=== PATIENT | male | born 1930 | race Caucasian/White ===

== ENCOUNTER 2017-12-16 10:37 | Inpatient (IN) | payer OTHER, MEDICARE ==
--- NOTE | 2017-12-16 11:21 | PDOC ---
History of Present Illness - General Chief Complaint: Lightheaded Stated Complaint: CHEST PAIN Time Seen by Provider: 12/16/17 10:46 - History of Present Illness Initial Comments: 12/16/17 11:18 "The patient is a 87 year old male, accompanied by family, with a past medical history of recent cardiac arrhythmia diagnosis (6 weeks ago), hypercholesterolemia (under control), BPH, and GERD who presents to the Emergency Department today with unsteady gait since early this morning. The patient states that when he got up to go to the bathroom during the night he felt unsteady. Upon going back to bed and waking up this morning he still felt unsteady and activated an ambulance. He states that he feels like he is unable to walk without holding on to something. Pt denies lightheadedness, denies room- spinning sensation. Denies CP/SOB/palpitations. No F/C. No abdominal pain/N/V/D. The patient is new to the area, his new primary medical doctor is Dr. Jerry Simms and he has an appointment to meet line haul owner operator, Dr. Khalil, this week. Family reports that patient fell out of bed 6 weeks ago, went to the hospital, and was admitted for 2 nights after having a heart rate of 30 bpm. Pt also had a holter monitor that showed runs of ectopic beats. At that time the patient was put on Metoprolol. He denies any recent changes in diet. He denies any dizziness, chest pain, shortness of breath, or similar symptoms previously. He denies any favoring, numbness or weakness to one side or another. Allergies: Tetracycline" NIH Stroke Scale - Last Known Well Date/Time & Onset Date Last Known Well: 12/15/17 Time Last Known Well: 22:00 - Initial Evaluation Level of consciousness: Alert Ask patient the month and their age: Answers both correctly Ask patient to open & close eyes; make fist and let go: Obeys both correctly Best gaze (horizontal eye movement): Normal Visual field testing: No visual field loss Facial paresis (Show teeth/raise eyebrows/close eyes tight): Normal symmetrical movement Motor Function: Left Arm: Normal Motor Function: Right Arm: Normal (extends arm 90 (or 45) degrees for 10 seconds without drift Motor Function: Left Leg: Normal (extends leg 30 degrees for 5 seconds without drift) Motor Function: Right Leg: Normal (extends leg 30 degrees for 5 seconds without drift) Limb Ataxia: Present in one limb Sensory(Use pinprick test arms,legs,trunk,face/side to side): Normal Best language (Describe picture, name items, read sentences): No Aphasia Dysarthria (read several words): Normal articulation Extinction and Inattention: No abnormality - Total Score NIH Stroke Scale Score: 1 Past History - Past Medical History Allergies/Adverse Reactions: Allergies Allergy/AdvReac Type Severity Reaction Status Date / Time Tetracyclines Allergy Unknown Verified 12/16/17 10:55 Home Medications: Ambulatory Orders Ascorbic Acid [Vitamin C] 1,000 mg PO DAILY 12/16/17 Aspirin [Aspirin EC] 81 mg PO DAILY 12/16/17 Calcium Lactate 100 mg PO DAILY 12/16/17 Cholecalciferol (Vitamin D3) [Vitamin D3] 1,000 unit PO DAILY 12/16/17 Cyanocobalamin [Vitamin B12 -] 1,000 mcg PO DAILY 12/16/17 Ferrous Sulfate 325 mg PO DAILY 12/16/17 Finasteride 5 mg PO DAILY 12/16/17 Fluticasone Prop 0.05% Nasal [Flonase -] 1 - 2 spray NS DAILY 12/16/17 Metoprolol Succinate 50 mg PO DAILY 12/16/17 Nitroglycerin Sublingual [Nitrostat -] 0.4 mg SL PRN PRN 12/16/17 [place]-3 Fatty Acids/Fish Oil [Cvs Fish Oil 1,200 mg Softgel] 3 each PO DAILY 09/22 Omeprazole 20 mg PO DAILY 12/16/17 Ranitidine HCl 150 mg PO DAILY 12/16/17 Simvastatin 40 mg PO HS 12/16/17 Tamsulosin HCl [Flomax] 0.4 mg PO DAILY 12/16/17 Ubidecarenone [Coenzyme Q-10] 200 mg PO DAILY 12/16/17 Cardiac Disorders: Yes COPD: No HTN: Yes Hypercholesterolemia: Yes Other medical history: BPH - Suicide/Smoking/Psychosocial Hx Smoking History: Never smoked Hx Alcohol Use: No Drug/Substance Use Hx: No Substance Use Type: None Review of Systems - Review of Systems Comments:: 12/16/17 11:22 "GENERAL/CONSTITUTIONAL: No fever or chills. HEAD, EYES, EARS, NOSE AND THROAT: No change in vision. No ear pain or discharge. No sore throat. CARDIOVASCULAR: No chest pain or shortness of breath. RESPIRATORY: No cough, wheezing, or hemoptysis. GASTROINTESTINAL: No nausea, vomiting, diarrhea or constipation. GENITOURINARY: No dysuria, frequency, or change in urination. MUSCULOSKELETAL: No joint or muscle swelling or pain. No neck or back pain. SKIN: No rash NEUROLOGIC: (+) Unsteady Gait. No headache, vertigo, loss of consciousness. ENDOCRINE: No increased thirst. No abnormal weight change. HEMATOLOGIC/LYMPHATIC: No anemia, easy bleeding, or history of blood clots. ALLERGIC/IMMUNOLOGIC: No hives or skin allergy." *Physical Exam - Vital Signs Last Vital Signs Temp Pulse Resp BP Pulse Ox 97.6 F 70 18 128/56 96 12/16/17 10:55 12/16/17 10:55 12/16/17 10:55 12/16/17 10:55 12/16/17 10:55 - Physical Exam Comments: 12/16/17 11:23 "GENERAL: Awake, alert, and fully oriented, in no acute distress HEAD: No signs of trauma EYES: PERRLA, EOMI, sclera anicteric, conjunctiva clear ENT: Auricles normal inspection, hearing grossly normal, nares patent, oropharynx clear without exudates. Moist mucosa NECK: Nontender, no stepoffs, Normal ROM, supple, no lymphadenopathy, JVD, or masses LUNGS: Breath sounds equal, clear to auscultation bilaterally. No wheezes, and no crackles HEART: Regular rate and rhythm, normal S1 and S2, no murmurs, rubs or gallops ABDOMEN: Soft, nontender, normoactive bowel sounds. No guarding, no rebound. No masses EXTREMITIES: Normal range of motion, no edema. No clubbing or cyanosis. No cords, erythema, or tenderness NEUROLOGICAL: (+) Mildly ataxic gait with (+) Romberg. Cranial nerves II through XII intact. 5/5 strength and sensation in all extremities, Normal speech , normal [id number], no nystagmus SKIN: Warm, Dry, normal turgor, no rashes or lesions noted. " Heart Score/ECG Review - ECG Impressions Comment:: 12/16/17 11:23 NSR, no SALVATORE/STDs, no TWIs, RBBB, rate 55 ED Treatment Course - LABORATORY CBC & Chemistry Diagram: 12/16/17 11:25 12/16/17 11:25 - RADIOLOGY Radiology Studies Ordered: Category Date Time Status HEAD CT WITHOUT CONTRAST [CT] Stat CT Scan 12/16/17 11:02 Ordered CHEST PA & LAT [RAD] Stat Radiology 12/16/17 11:02 Ordered Medical Decision Making - Medical Decision Making 12/16/17 11:24 87 M with unsteady gait x 1 day. Found to have + romberg on exam. Normal cerebellar tests. Symptoms concerning for sensory vs cerebellar ataxia. Pt outside window for TPA, as LKN was last night. Also consider cardiac etiology as pt has recently been diagnosed with arrhythmia (unclear which one), though pt denies pre-syncopal sensation and has normal vitals. EKG is NSR currently. - Labs - CT head - Neuro consult 12/16/17 12:53 CTH negative. Spoke with Dr. Booker, who recommends MRI. Pt admitted to tele under Dr. Simms. *DC/Admit/Observation/Transfer Diagnosis at time of Disposition: Ataxia - Discharge Dispostion Admit: Yes - Referrals Referrals: Praveen Simms MD [Primary Care Provider] - - Patient Instructions - Post Discharge Activity - Attestations Physician Attestion: 12/16/17 12:54 I, Dr. Martín Ross MD, attest that this document has been prepared under my direction and personally reviewed by me in its entirety. I further attest, that it accurately reflects all work, treatment, procedures and medical decision -making performed by me.
[2017-12-16 11:36] LABS: BASO % 0.8 % (0-2.0); EOS % 3.2 % (0-4.5); HEMATOCRIT 40.5 % (35.4-49); HEMOGLOBIN 13.5 GM/dL (11.7-16.9); LYMPH % 24.3 % (8-40); MCH 30.5 pg (25.7-33.7); MCHC 33.3 g/dl (32.0-35.9); MEAN CELL VOLUME 91.7 fl (80-96); MEAN PLT VOLUME 8.2 fl (7.5-11.1); MONO % 9.3 % (3.8-10.2); NEUT % 62.4 % (42.8-82.8); PLATELET COUNT 168 K/MM3 (134-434); RBC 4.41 M/mm3 (4.00-5.60); RDW 13.4 % (11.9-15.9); WHITE BLOOD COUNT 4.4 K/mm3 (4.0-10.0)
[2017-12-16 11:37] LABS: URINE APPEARANCE CLEAR; URINE BILIRUBIN NEGATIVE (NEGATIVE); URINE BLOOD NEGATIVE (NEGATIVE); URINE COLOR STRAW; URINE GLUCOSE (UA) NEGATIVE (NEGATIVE); URINE KETONE NEGATIVE (NEGATIVE); URINE LEUK ESTERASE NEGATIVE (NEGATIVE); URINE NITRITE NEGATIVE (NEGATIVE); URINE PROTEIN NEGATIVE (NEGATIVE); URINE UROBILINOGEN NEGATIVE mg/dL (0.2-1.0)
[2017-12-16 11:58] LABS: INR 0.99 (0.82-1.09); PROTHROMBIN TIME (PATIENT) 11.2 SEC (9.98-11.88)
[2017-12-16 12:00] LABS: ACTIVATED PTT 27.7 SECONDS (26.9-34.4); ALBUMIN 3.8 g/dl (3.4-5.0); ANION GAP 3 (8-16); BILIRUBIN,TOTAL 0.5 mg/dL (0.2-1.0); BLOOD UREA NITROGEN 16 mg/dL (7-18); CALCIUM 8.2 mg/dL (8.5-10.1); CHLORIDE 105 mmol/L (98-107); CO2 29 mmol/L (21-32); CREATININE 0.8 mg/dL (0.7-1.3); GLUCOSE,RANDOM 81 mg/dL (74-106); POTASSIUM 4.3 mmol/L (3.5-5.1); SGOT/AST 18 U/L (15-37); SGPT/ALT 33 U/L (12-78); SODIUM 137 mmol/L (136-145); TOT PROT 6.6 g/dl (6.4-8.2)
[2017-12-16 12:03] LABS: ALK PHOS 83 U/L (45-117)
[2017-12-16] MEDS ORDERED: NITROGLYCERIN SUBLINGUAL 1/150 0.4 MG TAB SL PRN (12:38)
--- NOTE | 2017-12-16 12:39 | HP ---
Admitting History and Physical - Primary Care Physician PCP: Praveen Simms - Admission Chief Complaint: unsteadiness, dizziness History of Present Illness: "The patient is a 87 year old male, accompanied by family, with a past medical history of recent cardiac arrhythmia diagnosis (6 weeks ago), hypercholesterolemia (under control), BPH, and GERD who presents to the Emergency Department today with unsteady gait since early this morning. The patient states that when he got up to go to the bathroom during the night he felt unsteady. Upon going back to bed and waking up this morning he still felt unsteady and activated an ambulance. He states that he feels like he is unable to walk without holding on to something. Pt denies lightheadedness, denies room- spinning sensation. Denies CP/SOB/palpitations. No F/C. No abdominal pain/N/V/D. The patient is new to the area, but he has an appointment to meet driver/guide, Dr. Khalil, next week. Family reports that patient fell out of bed 6 weeks ago, went to the hospital, and was admitted for 2 nights after having a heart rate of 30 bpm. Pt also had a holter monitor that showed runs of ectopic beats. At that time the patient was put on Metoprolol. He denies any recent changes in diet. He did have some dizziness and lightheadedness but no LOC, no headaches, no chest pain, shortness of breath, or similar symptoms previously. He denies any favoring, numbness or weakness to one side or another. History Source: Patient, Family Member Limitations to Obtaining History: No Limitations - Smoking History Smoking history: Never smoked - Alcohol/Substance Use Hx Alcohol Use: No History of Substance Use: reports: None - Social History Usual Living Arrangement: Yes: With Spouse ADL: Independent History of Recent Travel: Yes ([facility] ) Home Medications - Allergies Allergies/Adverse Reactions: Allergies Allergy/AdvReac Type Severity Reaction Status Date / Time Tetracyclines Allergy Unknown Verified 12/16/17 10:55 - Home Medications Home Medications: Ambulatory Orders Ascorbic Acid [Vitamin C] 1,000 mg PO DAILY 12/16/17 Aspirin [Aspirin EC] 81 mg PO DAILY 12/16/17 Calcium Lactate 100 mg PO DAILY 12/16/17 Cholecalciferol (Vitamin D3) [Vitamin D3] 1,000 unit PO DAILY 12/16/17 Cyanocobalamin [Vitamin B12 -] 1,000 mcg PO DAILY 12/16/17 Ferrous Sulfate 325 mg PO DAILY 12/16/17 Finasteride 5 mg PO DAILY 12/16/17 Fluticasone Prop 0.05% Nasal [Flonase -] 1 - 2 spray NS DAILY 12/16/17 Metoprolol Succinate 50 mg PO DAILY 12/16/17 Nitroglycerin Sublingual [Nitrostat -] 0.4 mg SL PRN PRN 12/16/17 [place]-3 Fatty Acids/Fish Oil [Cvs Fish Oil 1,200 mg Softgel] 3 each PO DAILY 09/22 Omeprazole 20 mg PO DAILY 12/16/17 Ranitidine HCl 150 mg PO DAILY 12/16/17 Simvastatin 40 mg PO HS 12/16/17 Tamsulosin HCl [Flomax] 0.4 mg PO DAILY 12/16/17 Ubidecarenone [Coenzyme Q-10] 200 mg PO DAILY 12/16/17 Family Disease History - Family Disease History Family History: Unremarkable Review of Systems - Review of Systems Constitutional: denies: Chills, Fever Eyes: denies: Blind Spots, Double Vision HENT: denies: Ear Pain, Epistaxis Neck: denies: Stiffness, Tenderness Cardiovascular: denies: Chest Pain, Shortness of Breath Respiratory: denies: Cough, SOB Gastrointestinal: denies: Abdominal Pain, Vomiting Genitourinary: denies: Discharge, Dysuria, Flank Pain Musculoskeletal: denies: Back Pain, Extremity Pain, Muscle Weakness Integumentary: denies: Eczema, Wound Neurological: reports: Dizziness, Unsteady Gait, Weakness (general). denies: Change in Speech, Confusion, Headache, Seizure, Syncope Hematology/Lymphatic: denies: Easily Bruised, Excessive Bleeding Psychiatric: denies: Anxiety, Depression, Suicidal Physical Examination Vital Signs: Vital Signs Temperature 97.6 F 12/16/17 10:55 Pulse Rate 70 12/16/17 10:55 Respiratory Rate 18 12/16/17 10:55 Blood Pressure 128/56 12/16/17 10:55 O2 Sat by Pulse Oximetry (%) 96 12/16/17 10:55 Constitutional: Yes: No Distress, Calm Eyes: Yes: Conjunctiva Clear HENT: Yes: Atraumatic Neck: Yes: Supple Cardiovascular: Yes: Regular Rate and Rhythm Respiratory: Yes: CTA Bilaterally Gastrointestinal: Yes: Soft. No: Distention, Tenderness Renal/: No: CVA Tenderness - Left, CVA Tenderness - Right Musculoskeletal: No: Joint Stiffness, Joint Swelling Extremities: No: Cold, Cool, Cyanosis Edema: No Integumentary: No: Rash, Venous Stasis Changes Neurological: Yes: WNL, Alert, Oriented, Unsteady Gait. No: Facial Droop, Lethargy ...Motor Strength: WNL Psychiatric: Yes: WNL, Alert, Oriented. No: Agitated Labs: CBC, BMP 12/16/17 11:25 12/16/17 11:25 Imaging - Results Chest X-ray: Report Reviewed Cat Scan: Report Reviewed Other: Report Reviewed Assessment/Plan "The patient is a 87 year old male, accompanied by family, with a past medical history of recent cardiac arrhythmia diagnosis (6 weeks ago), hypercholesterolemia (under control), BPH, and GERD who presents to the Emergency Department today with unsteady gait since early this morning. S/p recent fall, bradycardia and runs of ectopic beats, started on Metoprolol. some dizziness and lightheadedness but no LOC admit to telemetry CE, monitor HR head CT; might need brain MRI r/o TIA/CVA carotid US falls PFX advised do not get OOB alone, call for help if needs OOB d/w cardio dr Burk neurology aidee swanson pt, mendoza's and daughter in law in ER
--- NOTE | 2017-12-16 16:51 | EKG ---
Test Reason : Blood Pressure : / mmHG Vent. Rate : 055 BPM Atrial Rate : 055 BPM P-R Int : 184 ms QRS Dur : 140 ms QT Int : 432 ms P-R-T Axes : 055 -41 035 degrees QTc Int : 413 ms SINUS BRADYCARDIA LEFT AXIS DEVIATION RIGHT BUNDLE BRANCH BLOCK SEPTAL INFARCT , AGE UNDETERMINED ABNORMAL ECG NO PREVIOUS ECGS AVAILABLE Confirmed by SHANTA CURTIS MD ([id number]) on 12/16/2017 4:50:52 PM Referred By: Confirmed By:SHANTA CURTIS MD
--- NOTE | 2017-12-16 18:35 | CON.NEURO ---
Consult - Alcohol/Substance Use Hx Alcohol Use: No History of Substance Use: reports: None - Smoking History Smoking history: Never smoked - Social History ADL: Independent History of Recent Travel: Yes ([facility] ) Home Medications - Allergies Allergies/Adverse Reactions: Allergies Allergy/AdvReac Type Severity Reaction Status Date / Time Tetracyclines Allergy Unknown Verified 12/16/17 10:55 - Home Medications Home Medications: Ambulatory Orders Ascorbic Acid [Vitamin C] 1,000 mg PO DAILY 12/16/17 Aspirin [Aspirin EC] 81 mg PO DAILY 12/16/17 Calcium Lactate 100 mg PO DAILY 12/16/17 Cholecalciferol (Vitamin D3) [Vitamin D3] 1,000 unit PO DAILY 12/16/17 Cyanocobalamin [Vitamin B12 -] 1,000 mcg PO DAILY 12/16/17 Ferrous Sulfate 325 mg PO DAILY 12/16/17 Finasteride 5 mg PO DAILY 12/16/17 Fluticasone Prop 0.05% Nasal [Flonase -] 1 - 2 spray NS DAILY 12/16/17 Metoprolol Succinate 50 mg PO DAILY 12/16/17 Nitroglycerin Sublingual [Nitrostat -] 0.4 mg SL PRN PRN 12/16/17 [place]-3 Fatty Acids/Fish Oil [Cvs Fish Oil 1,200 mg Softgel] 3 each PO DAILY 09/22 Omeprazole 20 mg PO DAILY 12/16/17 Ranitidine HCl 150 mg PO DAILY 12/16/17 Simvastatin 40 mg PO HS 12/16/17 Tamsulosin HCl [Flomax] 0.4 mg PO DAILY 12/16/17 Ubidecarenone [Coenzyme Q-10] 200 mg PO DAILY 12/16/17 Physical Exam-Neuro Vital Signs: Vital Signs Temperature 97.6 F 12/16/17 10:55 Pulse Rate 70 12/16/17 10:55 Respiratory Rate 29 H 12/16/17 17:35 Blood Pressure 128/56 12/16/17 10:55 O2 Sat by Pulse Oximetry (%) 99 12/16/17 17:35 Labs: CBC, BMP 12/16/17 11:25 12/16/17 11:25 INR, PTT INR 0.99 (0.82-1.09) 12/16/17 11:25 Assessment/Plan cc difficulty walking for one day HPI 87 year old male , lives with . He has history of BPH, GERD,cardiac arrthymia ( 6 weeks ago), HLD. Patient came to hospital for unteady gait. He was feeling that he has to hold on to something, when walking. He denies feeling vertigo or lightheadedness. Patient is feeling better. His ct head is normal. He recently was started on metoprolol, ( previously he has side effect on medication and he was depressed and was stopped) His mri of brain done and was unremarkable, he has carotid ultrasound showed moderate stenosis. He denies any dysphagia, dysarthria or diplopia. He denies any motor weakness or numbness. He denies any fever, diarrhoea or vomiting . Past Medical History as above Past History Allergies/Adverse Reactions: Allergies Allergy/AdvReac Type Severity Reaction Status Date / Time Tetracyclines Allergy Unknown Verified 12/16/17 10:55 Home Medications: Ascorbic Acid [Vitamin C] 1,000 mg PO DAILY 12/16/17 Aspirin [Aspirin EC] 81 mg PO DAILY 12/16/17 Calcium Lactate 100 mg PO DAILY 12/16/17 Cholecalciferol (Vitamin D3) [Vitamin D3] 1,000 unit PO DAILY 12/16/17 Cyanocobalamin [Vitamin B12 -] 1,000 mcg PO DAILY 12/16/17 Ferrous Sulfate 325 mg PO DAILY 12/16/17 Finasteride 5 mg PO DAILY 12/16/17 Fluticasone Prop 0.05% Nasal [Flonase -] 1 - 2 spray NS DAILY 12/16/17 Metoprolol Succinate 50 mg PO DAILY 12/16/17 Nitroglycerin Sublingual [Nitrostat -] 0.4 mg SL PRN PRN 12/16/17 [place]-3 Fatty Acids/Fish Oil [Cvs Fish Oil 1,200 mg Softgel] 3 each PO DAILY 09/22 Omeprazole 20 mg PO DAILY 12/16/17 Ranitidine HCl 150 mg PO DAILY 12/16/17 Simvastatin 40 mg PO HS 12/16/17 Tamsulosin HCl [Flomax] 0.4 mg PO DAILY 12/16/17 Ubidecarenone [Coenzyme Q-10] 200 mg PO DAILY 12/16/17 ROS,FH,SH reviewed in chart Neurological Examination He sitting on stool beside his bed and charging his phone, speech is normal oriented x 3, at rest he is not feeling dizzy or any vertigo like sensation CN all intact, eomi, pupils is reactive no facial asymmetry motor 5/5 all ext sensation is normal reflex are generalized diminished ct head unremarkable mri of brain - no offical report available, for me no acute findings carotid ultrasound shoed moderate stenosis Assessment/Loc- Feeling unsteadiness- could be medication related as metoprolol has recently been started and now Neurological exam is normal and symptoms seems to be completely resolved. He was able to walk wtihout difficulty and he feel he is 95 percent back to normal ulikely to be tia/stroke or cerebellar dysfunction, no evidence of cord compression or neuropathy for moderate carotid ultrasound , continue aspirin and statin Plan- cardiology consult can be obtained, follow up official mri report PT Thanking you so much Mykel Booker MD
--- NOTE | 2017-12-16 19:00 | CON.CARD ---
Cardiology Consult (text) - Consultation Consultation Note: CC: dizziness 87 yo with h/o recent work up for bradycardia (work up notable for nsvt), htn, hl, bph, gerd who p/w episode of dizziness/unsteady gait. The patient states that when he got up to go to the bathroom during the night he felt unsteady. Upon going back to bed and waking up this morning he still felt unsteady everytime he stood up. [place] like he couldn't walk without holding on to something. Pt denies lightheadedness, denies room-spinning sensation. No similar episodes in the past. no recent decrease in exercise capacity Denies CP/SOB/palpitations, orthopnea, pnd, le edema, bleeding, transient neurologic sx's. Denies f/c/s, n/v/d, decreased po intake, rash, cough, congestion, h/a. Has an appointment to meet talent director, Dr. Khalil, next week. Just moved from [place]. Was recently in the middle of cardiac evaluation for bradycardia. States that he went to the ER after falling out of bed. In the ER he had HR of 38. (asx at the time). Had an event monitor placed, see below. Also had echo and stress test which he believes were wnl. Was placed on metoprolol a couple of weeks ago. States in the past had significant depression on metoprolol and notes that he has noticed his mood is once again becoming labile. he is very active and prior to his recent move this month he was exercising 3 times/week on a treadmill at an incline. pmhx/pshx: per hpi social hx: former tob. fam hx: no premature cad ros: per hpi Ambulatory Orders Ascorbic Acid [Vitamin C] 1,000 mg PO DAILY 12/16/17 Aspirin [Aspirin EC] 81 mg PO DAILY 12/16/17 Calcium Lactate 100 mg PO DAILY 12/16/17 Cholecalciferol (Vitamin D3) [Vitamin D3] 1,000 unit PO DAILY 12/16/17 Cyanocobalamin [Vitamin B12 -] 1,000 mcg PO DAILY 12/16/17 Ferrous Sulfate 325 mg PO DAILY 12/16/17 Finasteride 5 mg PO DAILY 12/16/17 Fluticasone Prop 0.05% Nasal [Flonase -] 1 - 2 spray NS DAILY 12/16/17 Metoprolol Succinate 50 mg PO DAILY 12/16/17 Nitroglycerin Sublingual [Nitrostat -] 0.4 mg SL PRN PRN 12/16/17 [place]-3 Fatty Acids/Fish Oil [Cvs Fish Oil 1,200 mg Softgel] 3 each PO DAILY 09/22 Omeprazole 20 mg PO DAILY 12/16/17 Ranitidine HCl 150 mg PO DAILY 12/16/17 Simvastatin 40 mg PO HS 12/16/17 Tamsulosin HCl [Flomax] 0.4 mg PO DAILY 12/16/17 Ubidecarenone [Coenzyme Q-10] 200 mg PO DAILY 12/16/17 Current Medications Ascorbic Acid (Vitamin C -) 1,000 mg PO DAILY [facility] Aspirin (Ecotrin -) 81 mg PO DAILY [facility] Atorvastatin Calcium (Lipitor -) 20 mg PO HS [facility] Cholecalciferol (Vitamin D3 -) 1,000 unit PO DAILY [facility] Cyanocobalamin (Vitamin B12 -) 1,000 mcg PO DAILY [facility] Ferrous Sulfate (Feosol -) 325 mg PO DAILY [facility] Finasteride (Proscar -) 5 mg PO DAILY [facility] Fluticasone Propionate (Flonase -) 1 spray NS DAILY [facility] Heparin Sodium (Porcine) (Heparin -) 5,000 unit SQ BID [facility] Metoprolol Succinate (Toprol Xl -) 50 mg PO DAILY [facility] Nitroglycerin (Nitrostat -) 0.4 mg SL PRN PRN PRN Reason: chest pain Non-Formulary Medication (Calcium Lactate [Calcium Lactate]) 100 mg PO DAILY [facility] Non-Formulary Medication ([place]-3 Fatty Acids/Fish Oil [Cvs Fish Oil 1,200 Mg Softgel]) 3 each PO DAILY [facility] Non-Formulary Medication (Ubidecarenone [Coenzyme Q-10]) 200 mg PO DAILY [facility] Pantoprazole Sodium (Protonix -) 20 mg PO DAILY [facility] Ranitidine HCl (Zantac -) 150 mg PO DAILY [facility] Tamsulosin HCl (Flomax -) 0.4 mg PO DAILY@0830 [facility] Vital Signs - 24 hr 12/16/17 12/16/17 10:55 17:35 Temperature 97.6 F Pulse Rate 70 Respiratory 18 29 H Rate Blood Pressure 128/56 O2 Sat by Pulse 96 99 Oximetry (%) Intake & Output 12/14/17 12/15/17 12/16/17 12/17/17 07:59 07:59 07:59 07:59 Weight 170 lb nad, calm appears younger than stated age jvd flat, neck supple ctab, nl effort rrr nl s1. s2 2/6 murmur at lsb with resp tea + bs soft nt nd ext without e/c/c + dp/pt, no carotid bruits no jaundice, diaphoresis aaox3 CBC, BMP 12/16/17 11:25 12/16/17 11:25 Laboratory Tests 12/16/17 12/16/17 11:25 11:25 Total Bilirubin 0.5 AST 18 ALT 33 Alkaline Phosphatase 83 Creatine Kinase 150 Creatine Kinase Index 3.3 CK-MB (CK-2) 5.030 H Troponin I < 0.02 Albumin 3.8 TSH 0.82 ekg: sb, 55 bpm. lad. rbbb. possible septal infarct. tele: sb brain mri 12/2017: small foci of hemosiderin from prior petechial microhemorrhages or prior/chronic hemorrhage contusion. An additional foci though to represent prior subarachnoid hemorrhage. no acute infarct. carotid dopplers 12/2017: [employer] velocities in LICA equivocal for (50-69%) stenosis. event monitor 11/2017: avg hr 67 bpm. (51-158) . 7% pvc's. NSVT up to 15 beats. per report, recent echo and stress test last month wnl. states his extra beats were suppressed during exercise. A/P 87 yo with h/o recent work up for bradycardia (work up notable for nsvt), htn, hl, bph, gerd who p/w episode of dizziness/unsteady gait. bradycardia/nsvt - placed on metoprolol one month ago, but in light of prior h/o severe depression on toprol, may benefit from switching to diltiazem. Patient would like to discuss with Dr. Khalil before making any changes. - tsh wnl. lyte repletion prn. - per report stress test wnl and ectopy suppressed by exercise which typically represents benign ventricular ectopy. tele monitoring. - CE's neg x 1. EKG without ischemic changes. Con't kevin. - will try to get records of recent testing. dizziness/instability - ? microhemorrhages on brain mri. unclear if from recent fall out of bed. Neuro following. would appreciate giudance regarding safety of asa. will hold for now. - recent echo wnl. - check orthostatic vitals. - tele monitoring. htn - currently reasonably controlled, monitor hl - con't statin
[2017-12-16 20:47] LABS: MAGNESIUM 2.3 mg/dL (1.8-2.4)
[2017-12-16] MEDS ORDERED: ATORVASTATIN CA 40 MG TABLET (FP) ONE (21:30)
[2017-12-16] MEDS ORDERED: HEPARIN NA (PORCINE) 5,000 UNITS/ML 1ML VIAL ONE (21:30)
[2017-12-16] MEDS: ATORVASTATIN CA 20 MG TABLET (FP) PO SCH (21:42)
[2017-12-16] MEDS: HEPARIN NA (PORCINE) 5,000 UNITS/ML 1ML VIAL SQ SCH (21:44)
[2017-12-17 05:49] VITALS: BMI 25.0
--- NOTE | 2017-12-17 07:49 | DS ---
Physical Examination Vital Signs: Vital Signs Temperature 97.7 F 12/17/17 06:00 Pulse Rate 56 L 12/17/17 06:00 Respiratory Rate 20 12/17/17 06:00 Blood Pressure 121/65 12/17/17 06:00 O2 Sat by Pulse Oximetry (%) 97 12/17/17 05:19 Findings/Remarks: feels well no new c/o wants to go home had brain MRI, old small bleeds; d/w neuro and cardio: will hold ASA for now; get NS eval; get brain MRA d/w pt and DIL Constitutional: Yes: No Distress, Calm Eyes: Yes: Conjunctiva Clear HENT: Yes: Atraumatic Neck: Yes: Supple Cardiovascular: Yes: Regular Rate and Rhythm Respiratory: Yes: CTA Bilaterally Gastrointestinal: Yes: Soft. No: Distention, Tenderness Renal/: No: CVA Tenderness - Left, CVA Tenderness - Right Musculoskeletal: No: Joint Stiffness, Joint Swelling Extremities: No: Cold, Cool, Cyanosis Edema: No Integumentary: No: Rash, Venous Stasis Changes Neurological: Yes: WNL, Alert, Oriented ...Motor Strength: WNL Psychiatric: Yes: WNL, Alert, Oriented. No: Agitated, Suicidal Ideation Labs: CBC, BMP 12/16/17 11:25 12/16/17 11:25 Discharge Summary Reason For Visit: ATAXIA Current Active Problems Ataxia (Acute) Procedures: Principal: admitted with unsteady gait Other Procedures: abNL brain MRI; to get MRA, if negatove can DC home with outpt f/u Hospital Course: hold ASA; will need cardio and neuro f/u outpt - Instructions Diet, Activity, Other Instructions: f/u PCP< cardiology and neurology in 2-4 weeks of DC hold ASA for now untill seen outpt by cardio and neurology home VNS, home PT: falls PFX RTER if worse or recurrent Referrals: Mykel Booker MD [Staff Physician] - Praveen Simms MD [Primary Care Provider] - Thomas Khalil MD [Staff Physician] - Disposition: VNS/HOME HEALTH CARE - Home Medications Comprehensive Discharge Medication List: Ambulatory Orders Ascorbic Acid [Vitamin C] 1,000 mg PO DAILY 12/16/17 Aspirin [Aspirin EC] 81 mg PO DAILY 12/16/17 Calcium Lactate 100 mg PO DAILY 12/16/17 Cholecalciferol (Vitamin D3) [Vitamin D3] 1,000 unit PO DAILY 12/16/17 Cyanocobalamin [Vitamin B12 -] 1,000 mcg PO DAILY 12/16/17 Ferrous Sulfate 325 mg PO DAILY 12/16/17 Finasteride 5 mg PO DAILY 12/16/17 Fluticasone Prop 0.05% Nasal [Flonase -] 1 - 2 spray NS DAILY 12/16/17 Metoprolol Succinate 50 mg PO DAILY 12/16/17 Nitroglycerin Sublingual [Nitrostat -] 0.4 mg SL PRN PRN 12/16/17 Lehr-3 Fatty Acids/Fish Oil [Cvs Fish Oil 1,200 mg Softgel] 3 each PO DAILY 09/22 Omeprazole 20 mg PO DAILY 12/16/17 Ranitidine HCl 150 mg PO DAILY 12/16/17 Simvastatin 40 mg PO HS 12/16/17 Tamsulosin HCl [Flomax] 0.4 mg PO DAILY 12/16/17 Ubidecarenone [Coenzyme Q-10] 200 mg PO DAILY 12/16/17
[2017-12-17 08:09] LABS: CHOLESTEROL 150 mg/dL (50-200); HDL CHOLESTEROL 82 mg/dL (40-60); LDL CHOLESTEROL (ONLY SJRH) 57 mg/dL (5-100); TRIGLYCERIDES 108 mg/dL (35-160)
--- NOTE | 2017-12-17 09:29 | PN ---
Progress Note, Physician Chief Complaint: OFF BALANCE History of Present Illness: describes feeling like he would fall whenever he stood up at home. sx now resolved. no overt spinning sensation (has this occasionally with rapid head movement over many yrs now). no presyncope. NEVER HAD SYNCOPE. no cp, sob, palpitations no cigs - Current Medication List Current Medications: Active Medications Ascorbic Acid (Vitamin C -) 1,000 mg PO DAILY [facility] Atorvastatin Calcium (Lipitor -) 20 mg PO HS [facility] Last Admin: 12/16/17 21:42 Dose: 20 mg Cholecalciferol (Vitamin D3 -) 1,000 unit PO DAILY [facility] Cyanocobalamin (Vitamin B12 -) 1,000 mcg PO DAILY [facility] Ferrous Sulfate (Feosol -) 325 mg PO DAILY [facility] Finasteride (Proscar -) 5 mg PO DAILY [facility] Fluticasone Propionate (Flonase -) 1 spray NS DAILY [facility] Heparin Sodium (Porcine) (Heparin -) 5,000 unit SQ BID [facility] Last Admin: 12/16/17 21:44 Dose: 5,000 unit Metoprolol Succinate (Toprol Xl -) 50 mg PO DAILY [facility] Nitroglycerin (Nitrostat -) 0.4 mg SL PRN PRN PRN Reason: chest pain Non-Formulary Medication (Calcium Lactate [Calcium Lactate]) 100 mg PO DAILY [facility] Non-Formulary Medication ([place]-3 Fatty Acids/Fish Oil [Cvs Fish Oil 1,200 Mg Softgel]) 3 each PO DAILY [facility] Non-Formulary Medication (Ubidecarenone [Coenzyme Q-10]) 200 mg PO DAILY [facility] Pantoprazole Sodium (Protonix -) 20 mg PO DAILY [facility] Ranitidine HCl (Zantac -) 150 mg PO DAILY [facility] Tamsulosin HCl (Flomax -) 0.4 mg PO DAILY@0830 [facility] - Objective Vital Signs: Vital Signs Temperature 97.7 F 12/17/17 06:00 Pulse Rate 56 L 12/17/17 06:00 Respiratory Rate 20 12/17/17 06:00 Blood Pressure 121/65 12/17/17 06:00 O2 Sat by Pulse Oximetry (%) 97 12/17/17 05:19 Constitutional: Yes: No Distress, Calm Eyes: No: Sclera Icterus HENT: No: Nasal Congestion Cardiovascular: Yes: Regular Rate and Rhythm, S1, S2, Other (PMI non diplaced). No: Gallop, Murmur Respiratory: Yes: CTA Bilaterally. No: Accessory Muscle Use, Rales, Wheezes Gastrointestinal: Yes: Normal Bowel Sounds, Soft. No: Tenderness Musculoskeletal: Yes: Other (No kyphosis) Extremities: No: Cold Edema: No Integumentary: No: Jaundice Neurological: Yes: Alert, Oriented (x3) Psychiatric: No: Agitated Labs: CBC, BMP 12/16/17 11:25 12/16/17 11:25 INR, PTT INR 0.99 (0.82-1.09) 12/16/17 11:25 - ....Imaging EKG: Other (tele: NSR, no pathological henry. freq PVCs, bigeminy/trigeminy, rare couplets. no VT) Assessment/Plan ekg: sb, 55 bpm. lad. rbbb. possible septal infarct. brain mri 12/2017: small foci of hemosiderin from prior petechial microhemorrhages or prior/chronic hemorrhage contusion. An additional foci though to represent prior subarachnoid hemorrhage. no acute infarct. carotid dopplers 12/2017: [employer] velocities in LICA equivocal for (50-69%) stenosis. event monitor 11/2017: avg hr 67 bpm. (51-158) . 7% pvc's (97K during 13d)). NSVT up to 15 beats. per report, recent echo and stress test last month wnl. states his extra beats were suppressed during exercise. A/P 87 yo with h/o recent work up for bradycardia (work up notable for nsvt), htn, hl, bph, gerd who p/w episode of dizziness/unsteady gait. bradycardia/nsvt - has had prior h/o asymptomatic sinus henry on ekg and event monitor - incidental NSVT (15 beats) on event monitor with reportedly normal echo and stress test (reliable historian). - freq PVCs here, no VT--? reason for metoprolol was PVC suppression to minimize risk of future ventric ectopy-assctd cmp - 87 yo with never any h/o VT or suspicious syncope (no syncope ever, in fact) - his periodic BPPV sx's long predate metoprolol, though now with acutely worse dysequilibrium sx. - pt states he argued with his prior cardio/EP about resuming metoprolol 25mg given this precipitated severe depression in him previously, hence i have to assume they had a compelling reason to start it (pt denies h/o afib) - will continue b-shannon for now (started by outside cardio in [place]), until records are fully reviewed and until i can d/w his prior EP. - CE's neg x 3. EKG without ischemic changes. dizziness/dysequilibrium - hemodisderin on brain mri in 2 locations (including cerebellum) from old SDH, ? when occurred (recent fall out of bed noted, evaluated at outside ER then) - per neuro, low suspicion of TIA - ? vestibular sx's from cerebellar pathology, vs BPPV - d/w'd dr apodaca risks of ASA (indication = primary prevention, nonobstructive carotid athero)--given SDH on MRI, her rec's hold ASA for now ( to have inpt MRA and neurosurg consult) - recent echo wnl. - sx's not c/w orthostatic hypotension. - tele monitoring. - rec vestibular therapy eval as outpt htn - currently reasonably controlled, monitor hl - con't statin NO NEED FOR TELE MONITORING
[2017-12-17] MEDS ORDERED: FISH OIL PO SCH (10:00)
[2017-12-17] MEDS ORDERED: UBIDECARENONE 200 MG PO SCH (10:00)
[2017-12-17] MEDS ORDERED: FATTY ACIDS PO SCH (10:00)
[2017-12-17] MEDS ORDERED: CALCIUM LACTATE 100 MG PO SCH (10:00)
[2017-12-17] MEDS ORDERED: ASPIRIN COATED 81 MG TABLET.EC PO SCH (10:00)
[2017-12-17] MEDS ORDERED: [UNRECOGNIZED DRUG - OTHER] PO SCH (10:00)
[2017-12-17] MEDS ORDERED: OMEGA PO SCH (10:00)
[2017-12-17] MEDS ORDERED: RANITIDINE HCL 150 MG TABLET (FP) ONE (10:04)
[2017-12-17] MEDS: HEPARIN NA (PORCINE) 5,000 UNITS/ML 1ML VIAL SQ SCH (10:11)
[2017-12-17] MEDS: FERROUS SO4 325 MG TABLET (FP) PO SCH (10:12)
[2017-12-17] MEDS: TAMSULOSIN HCL 0.4 MG CAP.ER.24H (FP) PO SCH (10:12)
[2017-12-17] MEDS: FLUTICASONE PROP 0.05% 16 GM NASAL SPRAY NS SCH (10:12)
[2017-12-17] MEDS: PANTOPRAZOLE 20 MG TABLET (FP) PO SCH (10:13)
[2017-12-17] MEDS: FINASTERIDE 5 MG TABLET (FP) PO SCH (10:13)
[2017-12-17] MEDS: CHOLECALCIFEROL (VITAMIN D3) 1,000 UNIT TABLET (FP) PO SCH (10:14)
[2017-12-17] MEDS: CYANOCOBALAMIN 1,000 MCG TABLET (FP) PO SCH (10:14)
[2017-12-17] MEDS: ASCORBIC ACID 500 MG TABLET (FP) PO SCH (10:14)
[2017-12-17] MEDS: RANITIDINE HCL 150 MG TABLET (FP) PO SCH (10:14)
--- NOTE | 2017-12-17 18:05 | PN ---
Progress Note (short form) - Note Progress Note: HPI 87 year old male , lives with . He has history of BPH, GERD,cardiac arrthymia ( 6 weeks ago), HLD. Patient came to hospital for unteady gait. He was feeling that he has to hold on to something, when walking. He denies feeling vertigo or lightheadedness. Patient is feeling better. His ct head is normal. He recently was started on metoprolol, ( previously he has side effect on medication and he was depressed and was stopped) His mri of brain done and was unremarkable, he has carotid ultrasound showed moderate stenosis. He denies any dysphagia, dysarthria or diplopia. He denies any motor weakness or numbness. symptoms completely resolved and he is walking in walkway Neurological Examination He sitting on stool beside his bed and charging his phone, speech is normal oriented x 3, at rest he is not feeling dizzy or any vertigo like sensation CN all intact, eomi, pupils is reactive no facial asymmetry motor 5/5 all ext sensation is normal reflex are generalized diminished ct head unremarkable mri of brain - mri of brain showed old hemorrhage and old subarachnoid hemorriage carotid ultrasound shoed moderate stenosis Assessment/Loc- Feeling unsteadiness- could be medication related as metoprolol has recently been started and now Neurological exam is normal and symptoms seems to be completely resolved. abnormal mri findings were discussed with back seam stitcher and Primary team Plan-- with all agree to hold aspirin as it was started for primary prevention and he has old chronic bleed and old subarachnoid hemorrhage, and it puts him at high risk of bleed Neurosurgery consult suggested mra, waiting for mra Suggest to hold aspirin and wait for neurosurgery and mra Thanking you so much Mykel Booker MD
[2017-12-17] MEDS: ATORVASTATIN CA 20 MG TABLET (FP) PO SCH (21:35)
--- NOTE | 2017-12-18 06:23 | PN ---
Progress Note, Physician Chief Complaint: doing well MRA negative; cleared by cardio, neuro to go home d.w cardio and neuro: ASA was used as primary PFX, since he had intracranial bleed would hold ASA for now, f/u outpt with them to see when and if can be restarted pt is also to have facial skin CA surgery outpt tomorrow, OK to do it d/w cardio and neurology home PT, home VNS falls PFXd/w pt and DIL - Current Medication List Current Medications: Active Medications Ascorbic Acid (Vitamin C -) 1,[address] [facility] Last Admin: 12/17/17 10:14 Dose: 1,000 mg Atorvastatin Calcium (Lipitor -) [address] [facility] Last Admin: 12/17/17 21:35 Dose: 20 mg Cholecalciferol (Vitamin D3 -) 1,[address] [facility] Last Admin: 12/17/17 10:14 Dose: 1,000 unit Cyanocobalamin (Vitamin B12 -) 1,[address] [facility] Last Admin: 12/17/17 10:14 Dose: 1,000 mcg Ferrous Sulfate (Feosol -) [address] [facility] Last Admin: 12/17/17 10:12 Dose: 325 mg Finasteride (Proscar -) [address] [facility] Last Admin: 12/17/17 10:13 Dose: Not Given Fluticasone Propionate (Flonase -) [address] [facility] Last Admin: 12/17/17 10:12 Dose: Not Given Metoprolol Succinate (Toprol Xl -) [address] [facility] Nitroglycerin (Nitrostat -) 0.4 mg SL PRN PRN PRN Reason: chest pain Non-Formulary Medication (Calcium Lactate [Calcium Lactate]) [address] [facility] Non-Formulary Medication (Ubidecarenone [Coenzyme Q-10]) [address] [facility] Pantoprazole Sodium (Protonix -) [address] [facility] Last Admin: 12/17/17 10:13 Dose: Not Given Ranitidine HCl (Zantac -) [address] [facility] Last Admin: 12/17/17 10:14 Dose: 150 mg Tamsulosin HCl (Flomax -) 0.4 mg PO DAILY@0830 [facility] Last Admin: 12/17/17 10:12 Dose: Not Given - Objective Vital Signs: Vital Signs Temperature 97.6 F 02/13/18 01:55 Pulse Rate 59 L 12/18/17 01:55 Respiratory Rate 18 12/18/17 01:55 Blood Pressure 111/66 12/18/17 01:55 O2 Sat by Pulse Oximetry (%) 98 12/17/17 21:00 Constitutional: Yes: No Distress, Calm Eyes: Yes: Conjunctiva Clear HENT: Yes: Atraumatic Neck: Yes: Supple Cardiovascular: Yes: Regular Rate and Rhythm Respiratory: Yes: CTA Bilaterally Gastrointestinal: Yes: Soft. No: Distention, Tenderness Genitourinary: No: CVA Tenderness - Left, CVA Tenderness - Right Musculoskeletal: No: Joint Stiffness, Joint Swelling Extremities: No: Cold, Cool Edema: No Integumentary: No: Rash, Venous Stasis Changes Neurological: Yes: WNL, Alert, Oriented ...Motor Strength: WNL Psychiatric: Yes: WNL, Alert, Oriented. No: Agitated, Suicidal Ideation Labs: CBC, BMP 12/16/17 11:25 12/16/17 11:25 INR, PTT INR 0.99 (0.82-1.09) 12/16/17 11:25 - ....Imaging Other: Report Reviewed Assessment/Plan "The patient is a 87 year old male, accompanied by family, with a past medical history of recent cardiac arrhythmia diagnosis (6 weeks ago), hypercholesterolemia (under control), BPH, and GERD who presents to the Emergency Department today with unsteady gait since early this morning. S/p recent fall, bradycardia and runs of ectopic beats, started on Metoprolol. some dizziness and lightheadedness but no LOC brain MRI / MRA noted; old bleed carotid US L 50-69 stenosis outpt f/u falls PFX advised do not get OOB alone, call for help if needs OOB d.w pt, daughter in law
[2017-12-18 07:44] VITALS: TEMP 98
--- NOTE | 2017-12-18 08:03 | PN ---
Progress Note (short form) - Note Progress Note: NEUROSURGERY CONSULT DICTATED Chart reviewed Pt interviewed Pt examined h/o recent cardiac arrhythmia diagnosis (6 weeks ago) after falling out of bed and sustaining a L facial lac, hypercholesterolemia, BPH, and GERD who presents to the Emergency Department today with unsteady gait since early this morning. The patient states that when he got up to go to the bathroom for the third time when he felt unsteady. Pt denies H/A, N/V, lightheadedness, vertigo, weakness, numbness, visual changes. Denies CP/SOB/palpitations. No F/C. 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
--- NOTE | 2017-12-18 09:23 | CONS ---
DATE OF CONSULTATION: 12/18/2017 CHIEF COMPLAINT: Balance issues of approximately 1-day duration. HISTORY OF PRESENT ILLNESS: The patient is an 87-year-old, right-handed male with a history of recently diagnosed cardiac bigeminy since 6 weeks ago, hypercholesterolemia, BPH, and gastroesophageal reflux disease, who complains of unsteady gait since yesterday morning. He got up in the middle of the night to go to the bathroom for the third time and did not feel he had the same balance as he did previously. He did not feel lightheaded, dizzy, or any vertigo. He has no nausea or vomiting and no visual changes. There are no fevers or chills. He still felt unsteady this morning and called an ambulance and came to the emergency room. The patient currently has no chest pain, shortness of breath, has no palpitations. He was recently diagnosed with cardiac bigeminy after being found in the urgent care center to be bradycardic at that time. That was 6 weeks ago in [place] when he fell out of bed in the middle of the night and sustained a left facial laceration. He was admitted at that time in [place]. PAST MEDICAL HISTORY: Significant for bradycardia/bigeminy, BPH, gastroesophageal reflux disease, hypercholesterolemia. MEDICATION: Currently includes Flomax, Toprol-XL, Flonase, Zantac, Lipitor, Feosol, Coenzyme Q10. ALLERGIES: There is known allergy to TETRACYCLINE. SOCIAL HISTORY: He does not smoke. He quit smoking 50 years ago. He only drinks jeri and does not drink any hard liquor. He is retired. He used to be an mission coordinator. He had moved down about 2 weeks ago from [place], back to [facility]. REVIEW OF SYSTEMS: Otherwise negative for other major constitutional, head and neck, cardiovascular, pulmonary, gastrointestinal, genitourinary, endocrinological, neurological, and psychological problems except for the above. PHYSICAL EXAMINATION: Vital Signs: Temperature is 98. Blood pressure is 116/47. Heart rate ranges between 55 to 67. O2 saturation 98% on room air. HEENT: Examination shows him to be normocephalic, atraumatic, anicteric. Neck: Supple with no carotid bruit. Coronary: Examination demonstrated a regular rhythm. Lungs: Clear to auscultation bilaterally. Abdomen: Benign. Extremities: Examination showed no signs of DVT. Distal pulses are 1+. Neurologic: He is awake, alert, and oriented x4. His speech is normal. Cranial nerve examination is intact 2-12. Motor examination shows 4+ to 5/5 strength in the bilateral upper and lower extremities without drift. Sensory examination is intact to light touch and vibratory sensation. Deep tendon reflexes are hyporeflexic throughout. There is no pathological long tract sign. Cerebellar examination demonstrated normal coordination for his age. He has intact malmbs-cy-[id number] examination. His gait is slightly hunched over but otherwise stable. LABORATORY: Examination shows white blood cell count of 4.4, hemoglobin is 13.5 , platelet count is 168,000. INR is 0.99. PTT is 27.7. Serum sodium is 137, potassium is 4.3, BUN is 16 and creatinine 0.8. Calcium is 8.2. LDL is 57, and total cholesterol is 150; HDL is 82. Urinalysis is negative. CT scan of the head from December 16 demonstrated [id number] generalized cerebral atrophy. There is left sphenoid sinus retention cyst. There is no fracture oblique. MRI of the brain from December 16 demonstrated right Sylvian fissure and right superior cerebellar/vermis T2/flare signals, changes consistent with hemosiderin and prior hemorrhage. There is also mild periventricular small vessel disease. Shwj-[id number] cerebral atrophy is noted. MRA of the brain demonstrated mildly hypoplastic left M1 segment, but there is no significant stenosis. There are no signs of aneurysm. IMPRESSION: 1. Mild, intermittent gait imbalance, likely from lumbar spinal stenosis. 2. Recently diagnosed cardiac arrhythmia. 3. Hypercholesterolemia. 4. Benign prostatic hypertrophy. 5. Chronic traumatic SAH. RECOMMENDATIONS: The patient presents with 3 episodes of gait imbalance in the middle of the night. His neurologic examination is nonfocal. He did sustain a fall out of bed about 6 weeks ago and sustained a left facial laceration. He likely has sustained a small amount of traumatic subarachnoid hemorrhage both in the Sylvian fissure and the superior cerebellar region at that time. That is consistent with the MRI findings of the hemosiderin. There are no signs of AVM or aneurysms on MRA of the brain. No neurosurgical intervention is neither recommended nor indicated. The patient should be careful with his balance when he walks. Safety precautions should be instituted. He has an appointment to see Dr. Khalil, his local service bar cashier, which is certainly appropriate. The above findings and recommendations were discussed with the patient at bedside. All questions were answered. TERESO JERRY M.D. MERARI/[id number] MTDD
[2017-12-18] MEDS ORDERED: metoPROLOL SUCCINATE 25 MG TAB.SR.24H (FP) PO SCH (10:00)
[2017-12-18] MEDS: TAMSULOSIN HCL 0.4 MG CAP.ER.24H (FP) PO SCH (10:18)
[2017-12-18] MEDS: FERROUS SO4 325 MG TABLET (FP) PO SCH (10:20)
[2017-12-18] MEDS: FINASTERIDE 5 MG TABLET (FP) PO SCH (10:22)
[2017-12-18] MEDS: CYANOCOBALAMIN 1,000 MCG TABLET (FP) PO SCH (10:22)
[2017-12-18] MEDS: ASCORBIC ACID 500 MG TABLET (FP) PO SCH (10:22)
[2017-12-18] MEDS: PANTOPRAZOLE 20 MG TABLET (FP) PO SCH (10:23)
[2017-12-18] MEDS: RANITIDINE HCL 150 MG TABLET (FP) PO SCH (10:23)
[2017-12-18] MEDS: FLUTICASONE PROP 0.05% 16 GM NASAL SPRAY NS SCH (10:23)
[2017-12-18] MEDS: CHOLECALCIFEROL (VITAMIN D3) 1,000 UNIT TABLET (FP) PO SCH (10:23)
[2017-12-18 12:12] VITALS: BP 119/63; PULSE 55
== END 2017-12-18 12:02 | disposition home health service (06) | DRG 93 ==
LOC: JER 10:37 → JERBED 13:50 → J5S 12-17 16:32
PROVIDERS: ADMIT Specialist; ATTEND Specialist
DX: R26.81 Unsteadiness on feet (principal); N40.0 Benign prostatic hyperplasia without lower urinary tract symptoms; K21.9 Gastro-esophageal reflux disease without esophagitis; S01.81XD Laceration without foreign body of other part of head, subsequent encounter; E78.00 Pure hypercholesterolemia, unspecified; I10 Essential (primary) hypertension; R00.1 Bradycardia, unspecified; R42 Dizziness and giddiness; F32.9 Major depressive disorder, single episode, unspecified; I65.29 Occlusion and stenosis of unspecified carotid artery; C44.89 Other specified malignant neoplasm of overlapping sites of skin; M48.061 Spinal stenosis, lumbar region without neurogenic claudication; S06.6X0D Traumatic subarachnoid hemorrhage without loss of consciousness, subsequent encounter; W06.XXXD Fall from bed, subsequent encounter; Z87.891 Personal history of nicotine dependence
CPT/HCPCS: 36415; 70450-TC; 70544-TC; 70551-TC; 71046-TC-FY; 80053; 80061; 81003; 82550; 82553; 82607; 83721; 83735; 84443; 84484; 85025; 85610; 85730; 86850; 86900; 86901; 93005; 93010; 93880-TC; 97116-GP; 97161-GP; 99285-25; J1644

== ENCOUNTER 2018-03-13 06:45 | Day surgery (SDC) | payer OTHER, MEDICARE ==
[2018-03-12 11:28] VITALS: BMI 26.7
[2018-03-13] MEDS ORDERED: PROPOFOL 20 ML ONE ×2 (08:13)
[2018-03-13] MEDS ORDERED: ETOMIDATE 20 MG/10 ML AMPUL IVPUSH ONE (08:13)
[2018-03-13] MEDS ORDERED: SUCCINYLCHOLINE CHLORIDE 200 MG/10 ML VIAL ONE (08:13)
[2018-03-13 08:59] VITALS: TEMP 97.6
[2018-03-13 10:20] VITALS: BP 123/70; PULSE 80
--- NOTE | 2018-03-14 17:00 | PATH ---
Surgical Pathology Report Patient Name: NEIL ARNDT I. [facility]. Rec. #: [id number] /Age/Gender: 1930 (Age: 87) / M Account: [id number] Location: U-ENDOSCOPY Taken: 03/13/2018 Received: 03/13/2018 Reported: 03/18/2018 Physicians: Maikel Patrick M.D. Specimen(s) Received A: BX SECOND PORTION DUODENUM AND BULB B: BX ANTRUM AND BODY C: BX GE JUNCTION Clinical History Barretts esophagus, screening Postoperative diagnosis: Hiatal hernia with GERD, diverticulosis Final Diagnosis A. DUODENUM, SECOND PORTION AND DUODENAL BULB, BIOPSY: DUODENAL MUCOSA WITHOUT SIGNIFICANT PATHOLOGIC FINDINGS. B. STOMACH, ANTRUM AND BODY, BIOPSY: GASTRIC ANTRAL AND BODY MUCOSA WITH MILD TO MODERATE CHRONIC ACTIVE GASTRITIS. IMMUNOHISTOCHEMICAL STAIN FOR H. PYLORI IS POSITIVE (RARE). C. 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 Comment: Case seen interdepartmentally. Electronically Signed Mamta Rubin M.D. Gross Description A. Received in formalin, labeled "biopsy second portion of duodenum and bulb" are 3 garcia, irregular portions of soft tissue ranging from 0.3-0.5 cm. in greatest dimension. The specimens are submitted in toto in one cassette. B. Received in formalin, labeled "biopsy gastric antrum and body" are 2 garcia, irregular portions of soft tissue measuring 0.2 and 0.4 cm. in greatest dimension. The specimens are submitted in toto in one cassette. C. Received in formalin, labeled "biopsy GE junction Ventura's" are 4 garcia, irregular portions of soft tissue ranging from 0.2-0.4 cm. in greatest dimension. The specimens are submitted in toto in one cassette. 03/13/201803/13/2018
== END 2018-03-13 10:20 | disposition home or self-care (01) ==
LOC: JASU-ENDO 06:45
PROVIDERS: ATTEND Internal Medicine Gastroenterology
PROC: 0DB98ZX Excision of Duodenum, Via Natural or Artificial Opening Endoscopic, Diagnostic (ICD-10-PCS; 2018-03-13)
PROC: 0DB68ZX Excision of Stomach, Via Natural or Artificial Opening Endoscopic, Diagnostic (ICD-10-PCS; 2018-03-13)
PROC: 0DB48ZX Excision of Esophagogastric Junction, Via Natural or Artificial Opening Endoscopic, Diagnostic (ICD-10-PCS; 2018-03-13)
PROC: 0DJD8ZZ Inspection of Lower Intestinal Tract, Via Natural or Artificial Opening Endoscopic (ICD-10-PCS; principal; 2018-03-13 08:00)
DX: Z86.010 Personal history of colon polyps (principal); K57.30 Diverticulosis of large intestine without perforation or abscess without bleeding; K29.50 Unspecified chronic gastritis without bleeding; B96.81 Helicobacter pylori [H. pylori] as the cause of diseases classified elsewhere; K21.0 Gastro-esophageal reflux disease with esophagitis; K44.9 Diaphragmatic hernia without obstruction or gangrene; K22.70 Barrett's esophagus without dysplasia
CPT/HCPCS: 43239; G0105; 88305-TC; 88342-TC

== ENCOUNTER 2018-05-10 03:28 | Inpatient (IN) | payer OTHER, MEDICARE ==
--- NOTE | 2018-05-10 03:38 | PDOC ---
Attending Attestation - HPI HPI: 05/10/18 04:27 The patient is a 87 year old male, with a significant past medical history of cardiac arrhythmia, hypercholesterolemia, BPH, and GERD, who presents to the emergency department via EMS with, dizziness. The patient got up from bed to use the bathroom when he began to feel dizzy. As per EMS, his monitor tech depicts bigeminy. He denies any recent fevers, chills, headache or dizziness. He denies any recent nausea, vomit, diarrhea or constipation. He denies any recent chest pain or shortness of breath. He denies any recent dysuria, frequency, urgency or hematuria. Allergies: Tetracycline. Social History: Former smoker. Denies EtOH use and recreational drug use. Primary Care Physician: Dr. Simms <Chapin Gatica - Last Filed: 05/10/18 04:27> - Resident Resident Name: Eric Hilton - ED Attending Attestation I have performed the following: I have examined & evaluated the patient, The case was reviewed & discussed with the resident, I agree w/resident's findings & plan, Exceptions are as noted - Physicial Exam PE: 05/13/18 20:15 Physical Exam General Appearance: Yes: Appropriately Dressed. No: Apparent Distress, Intoxicated HEENT: positive: EOMI, TL, Normal ENT Inspection, Normal Voice, TMs Normal, Pharynx Normal. negative: Pale Conjunctivae, Photophobia, Scleral Icterus (R), Scleral Icterus (L) Neck: positive: Trachea midline, Normal Thyroid, Supple. negative: Tender, Rigid, Carotid bruit, Stridor, Lymphadenopathy (R), Lymphadenopathy (L), Thyromegaly Respiratory/Chest: positive: Lungs Clear, Normal Breath Sounds. negative: Chest Tender, Respiratory Distress, Accessory Muscle Use, Labored Respiration, RES, Crackles, Rales, Rhonchi, Stridor, Wheezing, Dullness Cardiovascular: positive: Regular Rhythm, Regular Rate, S1, S2. negative: Edema , JVD, Murmur, Bradycardia, Tachycardia Vascular Pulses: Dorsalis-Pedis (R): 2+, Doralis-Pedis (L): 2+ Gastrointestinal/Abdominal: positive: Normal Bowel Sounds, Flat, Soft. negative : Tender, Organomegaly, Pulsatile Mass, Increased Bowel Sounds, Decreased BS, Distended, Guarding, Rebound, Hernia, Hepatomegaly, Spleenomegaly Lymphatic: negative: Adenopathy, Tenderness Musculoskeletal: positive: Normal Inspection. negative: CVA Tenderness, Decreased Range of Motion Extremity: positive: Normal Capillary Refill, Normal Inspection, Normal Range of Motion, Pelvis Stable. negative: Tender, Pedal Edema, Swelling, Erythema Integumentary: positive: Normal Color, Dry, Warm. negative: Cyanotic, Erythema , Jaundice, Rash Neurologic: positive: tap dancer II-XII NML intact, Fully Oriented, Alert, Normal Mood/ Affect, Motor Strength 5/5. negative: EOM Palsy, Facial Droop, Sensory Deficit - Medical Decision Making 05/13/18 20:16 Pt was admitted for further care and evaluation. <Misael Shipman - Last Filed: 05/13/18 20:16> Attestations - Attestations 05/10/18 04:27 Documentation prepared by Chapin Gatica, acting as pediatrician/medical doctor for Misael Shipman DO. <Chapin Gatica - Last Filed: 05/10/18 04:27>
[2018-05-10 04:03] LABS: BASO % 1.3 % (0-2.0); HEMATOCRIT 36.4 % (35.4-49); HEMOGLOBIN 12.6 GM/dL (11.7-16.9); LYMPH % 21.6 % (8-40); MCH 31.6 pg (25.7-33.7); MCHC 34.6 g/dl (32.0-35.9); MEAN CELL VOLUME 91.2 fl (80-96); MEAN PLT VOLUME 7.7 fl (7.5-11.1); MONO % 9.8 % (3.8-10.2); NEUT % 64.3 % (42.8-82.8); PLATELET COUNT 211 K/MM3 (134-434); RBC 3.99 M/mm3 (4.00-5.60); RDW 13.7 % (11.9-15.9); WHITE BLOOD COUNT 5.3 K/mm3 (4.0-10.0)
--- NOTE | 2018-05-10 04:23 | PDOC ---
History of Present Illness - General Chief Complaint: Irregular Heart Beat Stated Complaint: DIZZINESS Time Seen by Provider: 05/10/18 03:32 History Source: Patient - History of Present Illness Initial Comments: 05/10/18 04:28 The patient is a 87 year old male, accompanied by family, with a past medical history of recent cardiac arrhythmia diagnosis , hypercholesterolemia (under control), BPH, and GERD who presents to the Emergency Department today with feeling of dizziness after standing up from his bed to go urinate. He states that he feels like he is unable to walk without holding on to something. Pt denies lightheadedness, denies room-spinning sensation. Denies CP/SOB/ palpitations. No F/C. No abdominal pain/N/V/D. PCP: Mendez Cardio: Remi. Past History - Past Medical History Allergies/Adverse Reactions: Allergies Allergy/AdvReac Type Severity Reaction Status Date / Time Tetracyclines Allergy Unknown Verified 12/16/17 10:55 Home Medications: Ambulatory Orders Ascorbic Acid [Vitamin C] 1,000 mg PO DAILY 12/16/17 Cholecalciferol (Vitamin D3) [Vitamin D3] 1,000 unit PO DAILY 12/16/17 Cyanocobalamin [Vitamin B12 -] 1,000 mcg PO DAILY 12/16/17 Finasteride 5 mg PO HS 12/16/17 Nitroglycerin Sublingual [Nitrostat -] 0.4 mg SL PRN PRN 12/16/17 Simvastatin 10 mg PO HS 12/16/17 Tamsulosin HCl [Flomax] 0.4 mg PO HS 12/16/17 Ubidecarenone [Coenzyme Q-10] 200 mg PO DAILY 12/16/17 Mag Hydrox/Aluminum Hyd/Simeth [Gelusil Tablet Chewable] 1 tab PO DAILY PRN 06/22 Methylcellulose [Citrucel] 500 mg PO DAILY 03/12/18 Multivitamin with Iron [Multivitamins with Iron] 1 tab PO DAILY 03/12/18 Omeprazole 20 mg PO DAILY 03/12/18 Verapamil HCl [Verapamil Sr] 120 mg PO DAILY 03/12/18 Mag Carb/Aluminum Hydrox/Algin [Gaviscon Liquid] 30 ml PO PRN PRN #0 oral.susp 03/13/18 Cancer: Yes (FACIAL SKIN CANCER) Cardiac Disorders: Yes (CARDIAC ARRYTHMIA-BRADYCARDIA) COPD: No GI Disorders: Yes (VENTURA'S ESOPHAGUS,HIATAL HERNIA WITH GERD,COLON POLYPS INCLUDING RIGHT CO) Disorders: Yes (BPH) HTN: Yes Hypercholesterolemia: Yes Other medical history: H.pylori - Surgical History Abdominal Surgery: Yes (RIGHT INGUINAL HERNIA) - Suicide/Smoking/Psychosocial Hx Smoking History: Former smoker Have you smoked in the past 12 months: No Information on smoking cessation initiated: No Hx Alcohol Use: Yes (MODERATELY) Drug/Substance Use Hx: No Substance Use Type: None Hx Substance Use Treatment: No Review of Systems - Review of Systems Able to Perform ROS?: Yes Is the patient limited Lithuanian proficient: No Constitutional: No: Symptoms Reported HEENTM: No: Symptoms Reported Respiratory: No: Symptoms reported Cardiac (ROS): Yes: See HPI. No: Syncope, Chest Tightness ABD/GI: No: Symptoms Reported Musculoskeletal: No: Symptoms Reported Integumentary: No: Symptoms Reported Neurological: Yes: See HPI, Dizziness All Other Systems: Reviewed and Negative *Physical Exam - Vital Signs Last Vital Signs Temp Pulse Resp BP Pulse Ox 98.2 F 69 17 108/56 98 05/10/18 04:59 05/10/18 04:59 05/10/18 04:59 05/10/18 04:59 05/10/18 04:59 - Physical Exam General Appearance: Yes: Nourished, Appropriately Dressed. No: Apparent Distress HEENT: positive: EOMI, Normal ENT Inspection Respiratory/Chest: positive: Lungs Clear, Normal Breath Sounds. negative: Chest Tender, Respiratory Distress Cardiovascular: positive: Irregularly Irregular Gastrointestinal/Abdominal: positive: Normal Bowel Sounds, Flat, Soft. negative : Tender Extremity: positive: Normal Capillary Refill, Normal Inspection, Normal Range of Motion Integumentary: positive: Normal Color, Dry, Warm Neurologic: positive: Fully Oriented, Alert, Normal Mood/Affect, Normal Response , Motor Strength 5/5 ED Treatment Course - LABORATORY CBC & Chemistry Diagram: 05/10/18 03:40 05/10/18 03:40 - ADDITIONAL ORDERS Additional order review: Laboratory Results 05/10/18 03:40 Sodium 134 L Potassium 4.1 Chloride 100 Carbon Dioxide 28 Anion Gap 6 L BUN 22 H Creatinine 0.8 Creat Clearance w eGFR > 60 Random Glucose 97 Calcium 8.5 Total Bilirubin 0.3 AST 17 ALT 21 D Alkaline Phosphatase 74 Troponin I < 0.02 Total Protein 6.2 L Albumin 3.3 L 05/10/18 03:40 RBC 3.99 L MCV 91.2 MCHC 34.6 RDW 13.7 MPV 7.7 Neutrophils % 64.3 Lymphocytes % 21.6 Monocytes % 9.8 Eosinophils % 3.0 Basophils % 1.3 - RADIOLOGY Radiology Studies Ordered: Category Date Time Status CHEST X-RAY PORTABLE* [RAD] Stat Radiology 05/10/18 03:36 Ordered Medical Decision Making - Medical Decision Making 05/10/18 04:30 Will send labs, cardic workup, Probable admit to telemetry. 05/10/18 05:09 Positive orthostatics. Defibrillator pads placed on patient as precaustion. Spoke to Dr. Simms who accepted the patient to Telemetry floor. *DC/Admit/Observation/Transfer Diagnosis at time of Disposition: Neurocardiogenic pre-syncope - Discharge Dispostion Disposition: HOME Decision to Admit order: Yes Decision to Admit order Date/Time: Decision to Admit Order Category Date Time Status Decision to Admit to Hospital Routine Admission 05/10/18 04:45 Active - Referrals - Patient Instructions - Post Discharge Activity
[2018-05-10 04:25] LABS: ALBUMIN 3.3 g/dl (3.4-5.0); ANION GAP 6 (8-16); BILIRUBIN,TOTAL 0.3 mg/dL (0.2-1.0); BLOOD UREA NITROGEN 22 mg/dL (7-18); CALCIUM 8.5 mg/dL (8.5-10.1); CHLORIDE 100 mmol/L (98-107); CO2 28 mmol/L (21-32); CREATININE 0.8 mg/dL (0.7-1.3); GLUCOSE,RANDOM 97 mg/dL (74-106); POTASSIUM 4.1 mmol/L (3.5-5.1); SGOT/AST 17 U/L (15-37); SGPT/ALT 21 U/L (12-78); SODIUM 134 mmol/L (136-145); TOT PROT 6.2 g/dl (6.4-8.2)
[2018-05-10 04:27] LABS: ALK PHOS 74 U/L (45-117)
[2018-05-10 05:16] LABS: URINE APPEARANCE CLEAR; URINE BILIRUBIN NEGATIVE (<2.0 mg/dL); URINE COLOR STRAW; URINE GLUCOSE (UA) NEGATIVE (NEGATIVE); URINE KETONE NEGATIVE (NEGATIVE); URINE LEUK ESTERASE NEGATIVE (NEGATIVE); URINE NITRITE NEGATIVE (NEGATIVE); URINE PROTEIN NEGATIVE (NEGATIVE); URINE UROBILINOGEN NEGATIVE mg/dL (0.2-1.0)
[2018-05-10 05:33] LABS: EPI CELLS RARE /HPF (FEW)
[2018-05-10] MEDS ORDERED: NITROGLYCERIN SUBLINGUAL 1/150 0.4 MG TAB SL PRN (07:52)
[2018-05-10] MEDS ORDERED: DEXTROSE 5%-NORMAL SALINE 1,000 ML IV SCH (08:00)
[2018-05-10 08:16] VITALS: BMI 25.7
--- NOTE | 2018-05-10 09:20 | EKG ---
Test Reason : Blood Pressure : / mmHG Vent. Rate : 039 BPM Atrial Rate : 039 BPM P-R Int : 218 ms QRS Dur : 150 ms QT Int : 408 ms P-R-T Axes : 035 083 -56 degrees QTc Int : 328 ms MARKED SINUS BRADYCARDIA WITH 1ST DEGREE A-V BLOCK WITH PREMATURE SUPRAVENTRICULAR COMPLEXES BIATRIAL ENLARGEMENT RIGHT BUNDLE BRANCH BLOCK ABNORMAL ECG Confirmed by RUCHI FISH MD ([id number]) on 05/10/2018 9:20:37 AM Referred By: Confirmed By:RUCHI FISH MD
[2018-05-10] MEDS ORDERED: PANTOPRAZOLE 40 MG TABLET (FP) PO SCH (10:00)
[2018-05-10] MEDS ORDERED: CYANOCOBALAMIN 1,000 MCG TABLET (FP) PO SCH (10:00)
--- NOTE | 2018-05-10 10:41 | HP ---
Admitting History and Physical - Primary Care Physician PCP: Praveen Simms - Admission Chief Complaint: Dizziness History of Present Illness: Pt with dizziness when woke last night and wanted to go to the bathroom, no CP/ SOB/ palpitations associated with dizziness. Pr came to ER found to have HR in upper 30's - lower 40's. Pt was admitted to telemetry. History Source: Patient Limitations to Obtaining History: No Limitations - Past Medical History Cardiovascular: Yes: Hyperlipdemia, Other (PVC) Renal/: Yes: BPH Additional Past Medical History: Vertigo. - Advance Directives Advance Directives: Yes: Health Care Proxy - Smoking History Smoking history: Former smoker Have you smoked in the past 12 months: No If you are a former smoker, when did you quit?: 30 yrs ago - Alcohol/Substance Use Hx Alcohol Use: Yes (Occasional Glass of Wine) History of Substance Use: reports: None - Social History ADL: Independent History of Recent Travel: Yes ([employer] ) Home Medications - Allergies Allergies/Adverse Reactions: Allergies Allergy/AdvReac Type Severity Reaction Status Date / Time Tetracyclines Allergy Unknown Verified 12/16/17 10:55 - Home Medications Home Medications: Ambulatory Orders Ascorbic Acid [Vitamin C] 1,000 mg PO DAILY 12/16/17 Cholecalciferol (Vitamin D3) [Vitamin D3] 1,000 unit PO DAILY 12/16/17 Cyanocobalamin [Vitamin B12 -] 1,000 mcg PO DAILY 12/16/17 Finasteride 5 mg PO HS 12/16/17 Nitroglycerin Sublingual [Nitrostat -] 0.4 mg SL PRN PRN 12/16/17 Simvastatin 10 mg PO HS 12/16/17 Tamsulosin HCl [Flomax] 0.4 mg PO HS 12/16/17 Ubidecarenone [Coenzyme Q-10] 200 mg PO DAILY 12/16/17 Mag Hydrox/Aluminum Hyd/Simeth [Gelusil Tablet Chewable] 1 tab PO DAILY PRN 06/22 Methylcellulose [Citrucel] 500 mg PO DAILY 03/12/18 Multivitamin with Iron [Multivitamins with Iron] 1 tab PO DAILY 03/12/18 Omeprazole 20 mg PO DAILY 03/12/18 Verapamil HCl [Verapamil Sr] 120 mg PO DAILY 03/12/18 Mag Carb/Aluminum Hydrox/Algin [Gaviscon Liquid] 30 ml PO PRN PRN #0 oral.susp 03/13/18 Review of Systems - Review of Systems Constitutional: denies: Chills, Fever Eyes: denies: Blurred Vision, Double Vision HENT: reports: Difficult Swallowing. denies: Nasal Congestion, Throat Pain Neck: denies: Decreased ROM, Pain on Movement Cardiovascular: denies: Chest Pain, Edema, Palpitations Respiratory: denies: Cough, SOB Gastrointestinal: denies: Abdominal Pain, Nausea, Vomiting Genitourinary: denies: Discharge, Dysuria Musculoskeletal: denies: Back Pain, Joint Pain, Joint Swelling Integumentary: denies: Eczema, Rash Neurological: denies: Change in LOC, Numbness, Tremors, Unsteady Gait Endocrine: denies: Excessive Sweating, Intolerance to Cold Psychiatric: denies: Anxiety, Depression Physical Examination Vital Signs: Vital Signs Temperature 97.5 F L 05/10/18 10:00 Pulse Rate 62 05/10/18 10:00 Respiratory Rate 18 05/10/18 10:00 Blood Pressure 104/52 05/10/18 10:00 O2 Sat by Pulse Oximetry (%) 98 05/10/18 04:59 Constitutional: Yes: No Distress, Calm Eyes: Yes: Conjunctiva Clear, EOM Intact HENT: Yes: Normocephalic. No: Nasal Congestion Neck: Yes: Trachea Midline. No: Tenderness Cardiovascular: Yes: Regular Rate and Rhythm, S1, S2 Respiratory: Yes: Regular, CTA Bilaterally. No: Rales Gastrointestinal: Yes: Normal Bowel Sounds, Soft. No: Tenderness ...Rectal Exam: Yes: Deferred Renal/: No: CVA Tenderness - Left, CVA Tenderness - Right Musculoskeletal: Yes: Back Pain. No: Joint Swelling Edema: No Neurological: Yes: Alert, Oriented, Other (symmetric motor and sensory exam in UE/ LE/ face) Psychiatric: Yes: Alert, Oriented Labs: CBC, BMP 05/10/18 03:40 05/10/18 03:40 Imaging - Results Chest X-ray: Report Reviewed Problem List - Problems (1) Dizziness Code(s): R42 - DIZZINESS AND GIDDINESS (2) Bradycardia Code(s): R00.1 - BRADYCARDIA, UNSPECIFIED (3) Hyponatremia Assessment/Plan: borderline Code(s): E87.1 - HYPO-OSMOLALITY AND HYPONATREMIA (4) Hypercholesteremia Code(s): E78.00 - PURE HYPERCHOLESTEROLEMIA, UNSPECIFIED Assessment/Plan Admit to telemetry Repeat CE Cardio consult Check TSH, FT4 Pt's Verapamil was held, HR is better, to f/u with cardio (likely no surgical peocedure needed). Case was d/w family at bedside ( and son); all questions were answered. Case was d/w pt's nurse.
--- NOTE | 2018-05-10 10:51 | CON.CARD ---
Cardiology Consult (text) - Consultation Consultation Note: CC: dizziness hpi: 87 yo with h/o pvcs, htn, hld, bph, gerd, vertigo here with episode of dizziness/unsteady gait. Last night woke up to urinate and when walking felt dizzy and unsteady. Did not fall. No cp, sob, palps, loc, pnd, orthopnea, le edema. Feels well now asking to go home. Has similar episodes in past. no recent decrease in exercise capacity Denies f/c/s, n/v/d, decreased po intake, rash, cough, congestion, h/a. Sees dr ragsdale for cardio. pmhx/pshx: per hpi social hx: former tob. fam hx: no premature cad ros: per hpi meds: Home Medications Medication Instructions Recorded Ascorbic Acid [Vitamin C] 1,000 mg PO DAILY 12/16/17 Cholecalciferol (Vitamin D3) 1,000 unit PO DAILY 12/16/17 [Vitamin D3] Cyanocobalamin [Vitamin B12 -] 1,000 mcg PO DAILY 12/16/17 Finasteride 5 mg PO HS 12/16/17 Nitroglycerin Sublingual 0.4 mg SL PRN PRN 12/16/17 [Nitrostat -] Simvastatin 10 mg PO HS 12/16/17 Tamsulosin HCl [Flomax] 0.4 mg PO HS 12/16/17 Ubidecarenone [Coenzyme Q-10] 200 mg PO DAILY 12/16/17 Mag Hydrox/Aluminum Hyd/Simeth 1 tab PO DAILY PRN 03/12/18 [Gelusil Tablet Chewable] Methylcellulose [Citrucel] 500 mg PO DAILY 03/12/18 Multivitamin with Iron 1 tab PO DAILY 03/12/18 [Multivitamins with Iron] Omeprazole 20 mg PO DAILY 03/12/18 Verapamil HCl [Verapamil Sr] 120 mg PO DAILY 03/12/18 Mag Carb/Aluminum Hydrox/Algin 30 ml PO PRN PRN #0 oral.susp 03/13/18 [Gaviscon Liquid] pe: Vital Signs Period Temp Pulse Resp BP Sys/Jasmine Pulse Ox Last 24 Hr 97.5 F-98.2 F 39-74 14-18 92-125/42-72 96-98 nad, no jvd ctab, nl effort rr, ectopy, nl s1. s2 no murmurs + bs soft nt nd ext without e/c/c + dp/pt, no carotid bruits no jaundice, diaphoresis aaox3 Laboratory Last Values WBC 5.3 K/mm3 (4.0-10.0) 05/10/18 03:40 RBC 3.99 M/mm3 (4.00-5.60) L 05/10/18 03:40 Hgb 12.6 GM/dL (11.7-16.9) 05/10/18 03:40 Hct 36.4 % (35.4-49) 05/10/18 03:40 MCV 91.2 fl (80-96) 05/10/18 03:40 MCH 31.6 pg (25.7-33.7) 05/10/18 03:40 MCHC 34.6 g/dl (32.0-35.9) 05/10/18 03:40 RDW 13.7 % (11.9-15.9) 05/10/18 03:40 Plt Count 211 K/MM3 (134-434) D 05/10/18 03:40 MPV 7.7 fl (7.5-11.1) 05/10/18 03:40 Absolute Neuts (auto) 3.4 # 05/10/18 03:40 Neutrophils % 64.3 % (42.8-82.8) 05/10/18 03:40 Lymphocytes % 21.6 % (8-40) 05/10/18 03:40 Monocytes % 9.8 % (3.8-10.2) 05/10/18 03:40 Eosinophils % 3.0 % (0-4.5) 05/10/18 03:40 Basophils % 1.3 % (0-2.0) 05/10/18 03:40 Nucleated RBC % 0 % (0-0) 05/10/18 03:40 Sodium 134 mmol/L (136-145) L 05/10/18 03:40 Potassium 4.1 mmol/L (3.5-5.1) 05/10/18 03:40 Chloride 100 mmol/L (98-107) 05/10/18 03:40 Carbon Dioxide 28 mmol/L (21-32) 05/10/18 03:40 Anion Gap 6 (8-16) L 05/10/18 03:40 BUN 22 mg/dL (7-18) H 05/10/18 03:40 Creatinine 0.8 mg/dL (0.7-1.3) 05/10/18 03:40 Creat Clearance w eGFR > 60 (>60) 05/10/18 03:40 Random Glucose 97 mg/dL (74-106) 05/10/18 03:40 Calcium 8.5 mg/dL (8.5-10.1) 05/10/18 03:40 Total Bilirubin 0.3 mg/dL (0.2-1.0) 05/10/18 03:40 AST 17 U/L (15-37) 05/10/18 03:40 ALT 21 U/L (12-78) D 05/10/18 03:40 Alkaline Phosphatase 74 U/L (45-117) 05/10/18 03:40 Troponin I < 0.02 ng/ml (0.00-0.05) 05/10/18 03:40 Total Protein 6.2 g/dl (6.4-8.2) L 05/10/18 03:40 Albumin 3.3 g/dl (3.4-5.0) L 05/10/18 03:40 Urine Color Straw 05/10/18 04:10 Urine Appearance Clear 05/10/18 04:10 Urine pH 7.0 (5.0-8.0) 05/10/18 04:10 Ur Specific Gifford 1.011 (1.001-1.035) 05/10/18 04:10 Urine Protein Negative (NEGATIVE) 05/10/18 04:10 Urine Glucose (UA) Negative (NEGATIVE) 05/10/18 04:10 Urine Ketones Negative (NEGATIVE) 05/10/18 04:10 Urine Blood 1+ (NEGATIVE) H 05/10/18 04:10 Urine Nitrite Negative (NEGATIVE) 05/10/18 04:10 Urine Bilirubin Negative (<2.0 mg/dL) 05/10/18 04:10 Urine Urobilinogen Negative mg/dL (0.2-1.0) 05/10/18 04:10 Ur Leukocyte Esterase Negative (NEGATIVE) 05/10/18 04:10 Urine WBC (Auto) 1 /hpf (3-5) 05/10/18 04:10 Urine RBC (Auto) 11 /hpf (0-3) 05/10/18 04:10 Ur Epithelial Cells Rare /HPF (FEW) 05/10/18 04:10 tele: SR, no pathological henry. freq PVCs, bigeminy/trigeminy, rare couplets. no VT ett 10/2017: 9 mins, freq pvcs and short nsvt at rest, resolved during exercise echo 10/2017: nl lv, nl rv, no sig valve path, ao root 4 cm, nl rvsp ekg: sr, freq pvcs, old rbbb cxr: clear lungs brain mri 12/2017: small foci of hemosiderin from prior petechial microhemorrhages or prior/chronic hemorrhage contusion. An additional foci though to represent prior subarachnoid hemorrhage. no acute infarct. carotid dopplers 12/2017: bline inc velocities in LICA equivocal for (50-69%) stenosis. event monitor 11/2017: avg hr 67 bpm. (51-158) . 7% pvc's (97K during 13d)). NSVT up to 15 beats. per report, recent echo and stress test last month wnl. states his extra beats were suppressed during exercise. A/P: 87 yo with h/o pvcs, htn, hld, bph, gerd, vertigo here with episode of dizziness/unsteady gait. dizziness/dysequilibrium -chronic symptom for pt, evaluated thoroughly recently, no indication of cardiac etiology -recent echo, ett unremarkable -nl ortho vitals here -tele c/w prior pvcs, no pathologic henry or tachy -rec vestibular therapy eval as outpt pvcs/abnl ecg: - has had prior h/o asymptomatic sinus henry on ekg and event monitor -nl echo and nl ett recently - d/w ep in past, no ablation unless dec lvef, sustained vt, or intolerable sxs - cont home verapamil htn -controlled hld - con't statin cardiac mulligan ok for dc
[2018-05-10 12:31] LABS: ANION GAP 5 (8-16); BLOOD UREA NITROGEN 17 mg/dL (7-18); CALCIUM 8.8 mg/dL (8.5-10.1); CHLORIDE 104 mmol/L (98-107); CO2 30 mmol/L (21-32); CREATININE 0.8 mg/dL (0.7-1.3); GLUCOSE,RANDOM 98 mg/dL (74-106); POTASSIUM 4.4 mmol/L (3.5-5.1); SODIUM 139 mmol/L (136-145)
[2018-05-10 14:36] VITALS: BP 111/49; PULSE 68; TEMP 98.2
--- NOTE | 2018-05-10 15:16 | DS ---
Physical Examination Vital Signs: Vital Signs Temperature 98.2 F 05/10/18 14:00 Pulse Rate 68 05/10/18 14:00 Respiratory Rate 20 05/10/18 14:00 Blood Pressure 111/49 05/10/18 14:00 O2 Sat by Pulse Oximetry (%) 98 05/10/18 04:59 Findings/Remarks: Pt w/o dizziness/ CP/ palpitations/ SOB. Time spent for managing pt's discharge: over 50 minutes Constitutional: Yes: No Distress, Calm Cardiovascular: Yes: Regular Rate and Rhythm, S1, S2 Respiratory: Yes: Regular, CTA Bilaterally. No: Rales Gastrointestinal: Yes: Normal Bowel Sounds, Soft. No: Tenderness Edema: No Neurological: Yes: Alert, Oriented Labs: CBC, BMP 05/10/18 03:40 05/10/18 11:15 Discharge Summary Reason For Visit: [place] NEAR SYNCOPE Current Active Problems Bradycardia (Acute) Dizziness (Acute) Hypercholesteremia (Acute) Hyponatremia (Acute) Neurocardiogenic pre-syncope (Acute) Procedures: Principal: CXR Hospital Course: Pt came to ER with dizziness, found to have a low HR (upper 30's, lower 40's). Pt was admitted to Telemetry, HR improved off Verapamil and pt was asymptomatic. Pt was seen by Cardio (Dr. Lennon) and cleared for DC. Condition: Improved - Instructions Diet, Activity, Other Instructions: Monitor blood pressure twice a day at home Diet: low salt Referrals: Praveen Simms MD [Primary Care Provider] - (next week) Thomas Khalil MD [Staff Physician] - (1-2 weeks) Disposition: HOME - Home Medications Comprehensive Discharge Medication List: Ambulatory Orders
[2018-05-10] MEDS ORDERED: FINASTERIDE 5 MG TABLET (FP) PO SCH (22:00)
[2018-05-10] MEDS ORDERED: TAMSULOSIN HCL 0.4 MG CAP.ER.24H (FP) PO SCH (22:00)
== END 2018-05-10 15:54 | disposition home or self-care (01) | DRG 309 ==
LOC: JER 03:28 → JERBED 04:45 → UNDOADMIN 05:09 → J4W 06:30
PROVIDERS: ADMIT Specialist; ATTEND Specialist
DX: R00.1 Bradycardia, unspecified (principal); E87.1 Hypo-osmolality and hyponatremia; R42 Dizziness and giddiness; I45.10 Unspecified right bundle-branch block; Z87.891 Personal history of nicotine dependence; E78.00 Pure hypercholesterolemia, unspecified; K21.9 Gastro-esophageal reflux disease without esophagitis; N40.0 Benign prostatic hyperplasia without lower urinary tract symptoms; Z85.828 Personal history of other malignant neoplasm of skin
CPT/HCPCS: 36415; 71045-TC-FY; 80048; 80053; 81003; 81015; 82550; 84439; 84443; 84481; 84484; 85025; 93005; 93010; 99285-25